=== PATIENT | male | born 1980 | race Caucasian/White ===

== ENCOUNTER → 2025-02-09 | Outpatient (CLI) | payer OTHER, SELFPAY ==
--- NOTE | 2025-02-09 10:00 | XR_ITS ---
Examination: Duplex scan of the lower extremity, unilateral left Date and time of exam: February 09, 2025 1017 hours INDICATIONS: Calf swelling and pain beginning 2 weeks ago Technique: Duplex scan of the extremity veins using B-mode/grayscale imaging and Doppler spectral analysis and color flow Attention is directed to internal echogenicity, compression and augmentation involving these veins, color flow assessment, spectral analysis Findings: Major deep venous structures in the extremity demonstrate normal course and caliber. There is no evidence of deep vein thrombosis. Normal color flow and spectral analysis Impression: Negative for DVT..
--- NOTE | 2025-02-09 10:09 | XR_ITS ---
Examination: Ultrasound soft tissue extremity left ankle TECHNIQUE: Grayscale sonographic images soft tissue left ankle Date and time: February 09, 2025 10:26 AM INDICATIONS: Left ankle swelling 2 weeks. FINDINGS: Tubular fluid collection in the left posterior calf 10.0 x 2.2 x 5.0 cm IMPRESSION: Tubular fluid collection in the left posterior calf 10.0 x 2.2 x 5.0 cm, consider hematoma, consider MRI lower leg without contrast follow-up
== END | disposition home or self-care (01) ==
PROVIDERS: PCP Internal Medicine; Referring Provider Internal Medicine; Visit Provider Internal Medicine
DX: R60.0 Localized edema (principal)
CPT/HCPCS: 76882; 93971

== ENCOUNTER → 2025-07-11 | Outpatient (CLI) | payer OTHER, SELFPAY ==
--- NOTE | 2025-07-11 | XR_ITS ---
Examination: Knee, right, 3 views Technique: Knee AP, lateral, oblique 3 views Date and time of exam: 07/11/2025 at 3:30 p.m. INDICATION: Right knee pain for 2 months Findings all visible bones and soft tissues appear radiographically normal. There is no plain film evidence of a joint effusion. The joint spaces in the medial lateral and patellofemoral compartment are all normal IMPRESSION: Normal radiographs of the right knee
== END | disposition home or self-care (01) ==
LOC: CDIM 15:16
PROVIDERS: PCP Internal Medicine; Referring Provider Internal Medicine; Visit Provider Internal Medicine
DX: M25.561 Pain in right knee (principal)
CPT/HCPCS: 73562